=== PATIENT | male | born 1985 | race Caucasian/White ===

== ENCOUNTER 2017-10-09 20:32 | Inpatient (IN) | payer OTHER ==
[2017-10-09 20:45] VITALS: BMI 27.6
[2017-10-09] MEDS ORDERED: MELATONIN 5 MG TABLETS PO PRN (22:00)
--- NOTE | 2017-10-09 23:23 | HP ---
CIWA Score - CIWA Score Nausea/Vomitin-Mild Nausea/No Vomiting Muscle Tremors: 4-Moderate,w/Arms Extend Anxiety: 4-Mod. Anxious/Guarded Agitation: 4-Moderately Restless Paroxysmal Sweats: 1-Minimal Palms Moist Orientation: 1-Uncertain about Date Tacttile Disturbances: 0-None Auditory Disturbances: 0-None Visual Disturbances: 0-None Headache: 3-Moderate CIWA-Ar Total Score: 18 Admission ROS BHS - HPI Chief Complaint: Alcohol withdrawal symptoms Allergies/Adverse Reactions: Allergies Allergy/AdvReac Type Severity Reaction Status Date / Time Penicillins Allergy Verified 10/09/17 21:44 History of Present Illness: 32 years old male with 20 years of alcohol dependence is seeking admission to detox. Patient has been in previous detox, last at [facility] and reports insignificant period of sobriety. This is his first admission and first detox at [facility]. Patient has medical history of anxiety and depression. He denies suicide attempt and suicidal ideation at this time Exam Limitations: No Limitations - Ebola screening Have you traveled outside of the country in the last 21 days: No Have you had contact with anyone from an Ebola affected area: No Have you been sick,other than usual withdrawal symptoms: No Do you have a fever: No - Review of Systems Constitutional: Chills, Loss of Appetite, Night Sweats, Changes in sleep, Unexplained wgt Loss (reports 27 pounds loss in 3 months) EENT: reports: Sinus Pressure, Other (weas presciption glasse) Respiratory: reports: No Symptoms reported Cardiac: reports: Irregular Heart Rate GI: reports: No Symptoms Reported : reports: No Symptoms Reported Musculoskeletal: reports: Back Pain, Joint Pain, Muscle Pain, Muscle Weakness Integumentary: reports: Flushing Neuro: reports: Headache, Tremors Endocrine: reports: Excessive Sweating, Increased Urine Hematology: reports: No Symptoms Reported Psychiatric: reports: Agitated, Anxious, Depressed Other Systems: Reviewed and Negative Patient History - Patient Medical History Hx Anemia: No Hx Asthma: No Hx Chronic Obstructive Pulmonary Disease (COPD): No Hx Cardiac Disorders: No Hx Congestive Heart Failure: No Hx Hypertension: No Hx Hypercholesterolemia: Yes (Not on medication) HX Cerebrovascular Accident: No Hx Seizures: Yes (Not on medication) Hx Dementia: No Hx Diabetes: No Hx Gastrointestinal Disorders: No Hx Genitourinary Disorders: No Hx Sexually Transmitted Disorders: No Hx Renal Disease (ESRD): No Hx Thyroid Disease: No Hx Human Immunodeficiency Virus (HIV): No (Negative 2015) Hx Depression: Yes Hx Suicide Attempt: No (Denies suicide attempt/ suicigde deation at this [facility]) Hx Bipolar Disorder: No Hx Schizophrenia: No Other Medical History: Anxiety- Not on medication - Patient Surgical History Past Surgical History: No Hx Neurologic Surgery: No Hx Cataract Extraction: No Hx Cardiac Surgery: No Hx Lung Surgery: No Hx Abdominal Surgery: No Hx Appendectomy: No Hx Cholecystectomy: No Hx Genitourinary Surgery: No Hx Section: No Hx Orthopedic Surgery: No Other Surgical History: RECONSTRUCTIVE SURGERY ON THE JAW - Anesthesia Reaction: No - PPD History Previous Implant?: Yes Documented Results: Negative w/o proof Implanted On Prior [facility] Admission?: No PPD to be Administered?: Yes - Reproductive History Patient is a Female of Child Bearing Age (11 -55 yrs old): No (mALE) - Smoking Cessation Smoking history: Current every day smoker Have you smoked in the past 12 months: No Aproximately how many cigarettes per day: 10 Hx Chewing Tobacco Use: No Initiated information on smoking cessation: Yes 'Breaking Loose' booklet given: 10/09/17 - Substance & Tx. History Hx Alcohol Use: Yes Hx Substance Use: No - Substances Abused Alcohol Route: Oral Frequency: Daily Amount used: liquor- 1 pint, beer- 3 six pack Age of first use: 12 Date of Last Use: 10/08/17 Family Disease History - Family Disease History Family Disease History: Heart Disease: Father, [place]: Father Admission Physical Exam [facility] - Vital Signs Vital Signs: Vital Signs - 24 hr 10/09/17 20:44 Temperature 97.7 F Pulse Rate 75 Respiratory 18 Rate Blood Pressure 140/70 - Physical General Appearance: Yes: Moderate Distress, Tremorous, Irritable, Sweating, Anxious HEENTM: Yes: EOMI, Normal ENT Inspection, Normocephalic, Normal Voice, JONNY Respiratory: Yes: Lungs Clear, Normal Breath Sounds, No Respiratory Distress Neck: Yes: Supple Breast: Yes: Breast Exam Deferred Cardiology: Yes: Regular Rhythm, Regular Rate Abdominal: Yes: Normal Bowel Sounds Genitourinary: Yes: Within Normal Limits Back: Yes: Normal Inspection Musculoskeletal: Yes: Back pain, Muscle Pain, Muscle weakness Extremities: Yes: Tremors Neurological: Yes: Fully Oriented, Alert, Normal Mood/Affect Integumentary: Yes: Warm Lymphatic: Yes: Within Normal Limits - Diagnostic (1) Alcohol dependence with uncomplicated withdrawal Current Visit: Yes Status: Chronic (2) Depression Current Visit: Yes Status: Chronic (3) Anxiety Current Visit: Yes Status: Chronic Cleared for Admission [facility] - Detox or Rehab [facility] Level of Care: Medically Managed Detox Regimen/Protocol: Librium [facility] Breath Alcohol Content Breath Alcohol Content: 0 Urine Drug Screen - Results Drug Screen Negative: No Urine Drug Screen Results: THC-Marijuana, JOVANNA-Cocaine
[2017-10-09] MEDS ORDERED: chlordiazePOXIDE HCL 25 MG CAPSULE PO PRN (23:35)
[2017-10-09] MEDS ORDERED: ACETAMINOPHEN 325 MG TABLET (FP) PO PRN (23:35)
[2017-10-09] MEDS ORDERED: MENTHOL/PHENOL 1 EACH UD MM PRN (23:35)
[2017-10-09] MEDS ORDERED: MAG HYDROX/AL HYDROX/SIMETH 30 ML UNIT-DOSE CUP PO PRN (23:35)
[2017-10-09] MEDS ORDERED: guaiFENesin/D-METHORPHAN HB 10 ML UNIT-DOSE CUPS PO PRN (23:35)
[2017-10-09] MEDS ORDERED: P-EPHED 60MG/TRIPROLIDI 2.5MG TABLET PO PRN (23:35)
[2017-10-09] MEDS ORDERED: MAGNESIUM CITRATE 300 ML BOTTLE PO PRN (23:35)
[2017-10-09] MEDS ORDERED: IBUPROFEN 400 MG TABLET (FP) PO PRN (23:35)
[2017-10-09] MEDS ORDERED: chlordiazePOXIDE HCL 25 MG CAPSULE PO ONE (23:35)
[2017-10-09] MEDS ORDERED: NICOTINE POLACRILEX 2 MG GUM BUC PRN (23:35)
[2017-10-09] MEDS ORDERED: MAGNESIUM HYDROX 2400MG/30ML ORAL SUSPENSION 30 ML CUP PO PRN (23:35)
[2017-10-09] MEDS ORDERED: LOPERAMIDE HCL 2 MG CAPSULE PO PRN (23:35)
[2017-10-10] MEDS: chlordiazePOXIDE HCL 25 MG CAPSULE PO SCH ×5 (06:15→22:45)
[2017-10-10 10:17] LABS: URINE APPEARANCE CLEAR; URINE BILIRUBIN NEGATIVE (<2.0 mg/dL); URINE COLOR LTYELLOW; URINE GLUCOSE (UA) NEGATIVE (NEGATIVE); URINE KETONE NEGATIVE (NEGATIVE); URINE LEUK ESTERASE NEGATIVE (NEGATIVE); URINE NITRITE NEGATIVE (NEGATIVE); URINE PROTEIN NEGATIVE (NEGATIVE); URINE UROBILINOGEN NEGATIVE mg/dL (0.2-1.0)
[2017-10-10 10:23] LABS: HEMATOCRIT 48.1 % (35.4-49); HEMOGLOBIN 15.5 GM/dL (11.7-16.9); MCH 28.9 pg (25.7-33.7); MCHC 32.2 g/dl (32.0-35.9); MEAN CELL VOLUME 89.9 fl (80-96); MEAN PLT VOLUME 9.5 fl (7.5-11.1); PLATELET COUNT 271 K/MM3 (134-434); RBC 5.35 M/mm3 (4.00-5.60); WHITE BLOOD COUNT 8.9 K/mm3 (4.0-10.0)
[2017-10-10] MEDS: PRENATAL VITAMINS W/ FOLIC ACID TABLET (FP) PO SCH (10:46)
[2017-10-10] MEDS: NICOTINE 14 MG/24 HOURS TOPICAL PATCH TD SCH (10:46)
--- NOTE | 2017-10-10 12:17 | EKG ---
Test Reason : Blood Pressure : / mmHG Vent. Rate : 060 BPM Atrial Rate : 060 BPM P-R Int : 144 ms QRS Dur : 088 ms QT Int : 404 ms P-R-T Axes : 056 069 039 degrees QTc Int : 404 ms NORMAL SINUS RHYTHM NORMAL ECG NO PREVIOUS ECGS AVAILABLE Confirmed by ELYSIA ZAIDI MD ([id number]) on 10/10/2017 12:17:13 PM Referred By: Confirmed By:ELYSIA ZAIDI MD
[2017-10-10 12:31] LABS: CHLORIDE 104 mmol/L (98-107); POTASSIUM 4.5 mmol/L (3.5-5.1); SODIUM 141 mmol/L (136-145)
[2017-10-10 12:59] LABS: ALBUMIN 3.7 g/dl (3.4-5.0); ALK PHOS 90 U/L (45-117); ANION GAP 10 MMOL/L (8-16); BILIRUBIN,TOTAL 0.6 mg/dL (0.2-1.0); BLOOD UREA NITROGEN 18 mg/dL (7-18); CO2 27 mmol/L (21-32); CREATININE 1.1 mg/dL (0.7-1.3); GLUCOSE,RANDOM 93 mg/dL (74-106); SGOT/AST 20 U/L (15-37); SGPT/ALT 29 U/L (12-78); TOT PROT 7.7 g/dl (6.4-8.2)
--- NOTE | 2017-10-10 14:06 | PN ---
S CIWA - CIWA Score Nausea/Vomitin Muscle Tremors: 3 Anxiety: 3 Agitation: 2 Paroxysmal Sweats: 1-Minimal Palms Moist Orientation: 0-Oriented Tacttile Disturbances: 1-Very Mild Itch/Numbness Auditory Disturbances: 1-Very Mild Visual Disturbances: 0-None Headache: 2-Mild CIWA-Ar Total Score: 16 BHS Progress Note (SOAP) Subjective: alert,irritable,anxious,interrupted sleep,tremor Objective: 10/10/17 14:04 Vital Signs Temperature 97.3 F L 10/10/17 13:23 Pulse Rate 57 L 10/10/17 13:23 Respiratory Rate 18 10/10/17 13:23 Blood Pressure 142/86 10/10/17 13:23 O2 Sat by Pulse Oximetry (%) ekg nsr,normal ecg rate 60/min qt/qtc 404/404 Laboratory Last Values WBC 8.9 K/mm3 (4.0-10.0) 10/10/17 07:30 RBC 5.35 M/mm3 (4.00-5.60) 10/10/17 07:30 Hgb 15.5 GM/dL (11.7-16.9) 10/10/17 07:30 Hct 48.1 % (35.4-49) 10/10/17 07:30 MCV 89.9 fl (80-96) 10/10/17 07:30 MCH 28.9 pg (25.7-33.7) 10/10/17 07:30 MCHC 32.2 g/dl (32.0-35.9) 10/10/17 07:30 RDW 14.0 % (11.9-15.9) 10/10/17 07:30 Plt Count 271 K/MM3 (134-434) 10/10/17 07:30 MPV 9.5 fl (7.5-11.1) 10/10/17 07:30 Sodium 141 mmol/L (136-145) 10/10/17 07:30 Potassium 4.5 mmol/L (3.5-5.1) 10/10/17 07:30 Chloride 104 mmol/L (98-107) 10/10/17 07:30 Carbon Dioxide 27 mmol/L (21-32) 10/10/17 07:30 Anion Gap 10 MMOL/L (8-16) 10/10/17 07:30 BUN 18 mg/dL (7-18) 10/10/17 07:30 Creatinine 1.1 mg/dL (0.7-1.3) 10/10/17 07:30 Creat Clearance w eGFR > 60 (>60) 10/10/17 07:30 Random Glucose 93 mg/dL (74-106) 10/10/17 07:30 Calcium 9.0 mg/dL (8.5-10.1) 10/10/17 07:30 Total Bilirubin 0.6 mg/dL (0.2-1.0) 10/10/17 07:30 AST 20 U/L (15-37) 10/10/17 07:30 ALT 29 U/L (12-78) 10/10/17 07:30 Alkaline Phosphatase 90 U/L (45-117) 10/10/17 07:30 Total Protein 7.7 g/dl (6.4-8.2) 10/10/17 07:30 Albumin 3.7 g/dl (3.4-5.0) 10/10/17 07:30 Urine Color Ltyellow 10/10/17 07:30 Urine Appearance Clear 10/10/17 07:30 Urine pH 6.0 (5.0-8.0) 10/10/17 07:30 Ur Specific [place] 1.023 (1.001-1.035) 10/10/17 07:30 Urine Protein Negative (NEGATIVE) 10/10/17 07:30 Urine Glucose (UA) Negative (NEGATIVE) 10/10/17 07:30 Urine Ketones Negative (NEGATIVE) 10/10/17 07:30 Urine Blood Negative (NEGATIVE) 10/10/17 07:30 Urine Nitrite Negative (NEGATIVE) 10/10/17 07:30 Urine Bilirubin Negative (<2.0 mg/dL) 10/10/17 07:30 Urine Urobilinogen Negative mg/dL (0.2-1.0) 10/10/17 07:30 Ur Leukocyte Esterase Negative (NEGATIVE) 10/10/17 07:30 RPR Titer Nonreactive (NONREACTIVE) 10/10/17 07:30 HIV 1&2 Antibody Screen Negative 10/10/17 07:30 HIV P24 Antigen Negative 10/10/17 07:30 Assessment: 10/10/17 14:05 withdrawal symptom Plan: continue detox
--- NOTE | 2017-10-10 15:54 | CONSULT ---
[facility] Psychiatric Consult - Data Date of interview: 10/10/17 Admission source: [facility] Identifying data: Patient is a 32 year old male, father of three, unemployed, and currently living with the mother of his children. This is patient's first admission to detox at [facility]. Pt. admitted to for alcohol and cocaine dependence. Substance Abuse History: Smoking Cessation. Smoking history: Current every day smoker. Have you smoked in the past 12 months: No. Aproximately how many cigarettes per day: 10. Hx Chewing Tobacco Use: No. Initiated information on smoking cessation: Yes. 'Breaking Loose' booklet given: 10/09/17. - Substance & Tx. History. Hx Alcohol Use: Yes. Hx Substance Use: No. - Substances Abused. Alcohol. Route: Oral. Frequency: Daily. Amount used: liquor- 1 pint, beer- 3 six pack. Age of first use: 12. Date of Last Use: 10/08/17 Medical History: Reconstructive surgery of the jaw. Psychiatric History: Patient's first psychiatric hospitalization was at 12 years of age after his parents . Pt. denies accepting medications as a teenager. Outpatient psychiatric services was provided on and off for several years. Most recent OPD was provided 1.5 years ago. States he has been on trials of zoloft, gabapentin, seroquel and mirtzapine. Pt denies h/o suicide attempt. Pt. reports feeling sad and difficulty sleeping. Physical/Sexual Abuse/Trauma History: denies. Mental Status Exam - Mental Status Exam Alert and Oriented to: Time, Place, Person Cognitive Function: Good Patient Appearance: Well Groomed Mood: Sad, Euthymic Affect: Mood Congruent Patient Behavior: Appropriate, Cooperative Speech Pattern: Clear, Appropriate Voice Loudness: Normal Thought Process: Intact, Goal Oriented Thought Disorder: Not Present Hallucinations: Denies Suicidal Ideation: Denies Homicidal Ideation: Denies Insight/Judgement: Poor Sleep: Poorly Appetite: Fair Muscle strength/Tone: Normal Gait/Station: Normal Psychiatric Findings - Problem List ([place] 1, 2,3) (1) Cocaine dependence Current Visit: Yes Status: Acute (2) Substance induced mood disorder Current Visit: Yes Status: Acute (3) Alcohol dependence with uncomplicated withdrawal Current Visit: Yes Status: Acute - Initial Treatment Plan Initial Treatment Plan: Psychoeducation provided. Detoxification in progress. Mirtzapine 15mg qhs ordered. Benefits and side effects discussed. Verbal consent given.
[2017-10-10] MEDS: THIAMINE HCL 100 MG TABLET (FP) PO SCH (22:19)
[2017-10-10] MEDS: MIRTAZAPINE 15 MG TABLET (FP) PO SCH (22:20)
[2017-10-11] MEDS: chlordiazePOXIDE HCL 25 MG CAPSULE PO SCH ×3 (05:56→17:21)
[2017-10-11] MEDS: NICOTINE 14 MG/24 HOURS TOPICAL PATCH TD SCH (10:17)
[2017-10-11] MEDS: PRENATAL VITAMINS W/ FOLIC ACID TABLET (FP) PO SCH (10:19)
[2017-10-11] MEDS ORDERED: hydrOXYzine PAMOATE 50 MG CAPSULE (FP) PO ONE (10:41)
[2017-10-11] MEDS ORDERED: hydrOXYzine PAMOATE 50 MG CAPSULE (FP) PO PRN (10:41)
--- NOTE | 2017-10-11 12:34 | PN ---
S CIWA - CIWA Score Nausea/Vomitin Muscle Tremors: 3 Anxiety: 2 Agitation: 2 Paroxysmal Sweats: 1-Minimal Palms Moist Orientation: 0-Oriented Tacttile Disturbances: 1-Very Mild Itch/Numbness Auditory Disturbances: 1-Very Mild Visual Disturbances: 0-None Headache: 2-Mild CIWA-Ar Total Score: 15 BHS Progress Note (SOAP) Subjective: alert,irritable,anxious,interrupted sleep,tremor Objective: 10/11/17 12:33 Vital Signs Temperature 97.7 F 10/11/17 11:28 Pulse Rate 76 10/11/17 11:28 Respiratory Rate 20 10/11/17 11:28 Blood Pressure 146/97 10/11/17 11:28 O2 Sat by Pulse Oximetry (%) Assessment: 10/11/17 12:34 withdrawal symptom Plan: continue detox
[2017-10-11] MEDS ORDERED: DEXAMETHASONE SOD PHOSPHATE 4 MG/1 ML VIAL ONE (15:54)
[2017-10-11] MEDS ORDERED: MIDAZOLAM HCL 2 MG/2 ML SINGLE DOSE VIAL ONE (15:54)
[2017-10-11] MEDS ORDERED: PROPOFOL 20 ML ONE (15:54)
[2017-10-11] MEDS ORDERED: LIDOCAINE HCL/PF 2% SDV 5ML VIAL ONE (15:54)
[2017-10-11] MEDS: MIRTAZAPINE 15 MG TABLET (FP) PO SCH (22:01)
[2017-10-11] MEDS: THIAMINE HCL 100 MG TABLET (FP) PO SCH (22:01)
[2017-10-11] MEDS: chlordiazePOXIDE 5 MG CAPSULE PO SCH (22:01)
[2017-10-12] MEDS: chlordiazePOXIDE 5 MG CAPSULE PO SCH (06:32)
[2017-10-12 09:21] VITALS: BP 127/73; PULSE 67; TEMP 97.5
--- NOTE | 2017-10-12 10:15 | DS ---
[facility] Detox Discharge Summary Admission Date: 10/09/17 Discharge Date: 10/12/17 - History Present History: Alcohol Dependence Additional Comments: 32 years old male admitted on 10/09/17 for alcohol withdrawal sx reported feeling better denies alcohol withdrawal sx alert oriented x 3 no acute distress aftercare [facility] for medical and mental issues health teaching on alcohol misuse related complications - Physical Exam Results Vital Signs: Vital Signs Temperature 97.5 F L 10/12/17 09:21 Pulse Rate 67 10/12/17 09:21 Respiratory Rate 18 10/12/17 09:21 Blood Pressure 127/73 10/12/17 09:21 O2 Sat by Pulse Oximetry (%) Pertinent Admission Physical Exam Findings: alcohol withdrawal sx Vital Signs Temperature 97.5 F L 10/12/17 09:21 Pulse Rate 67 10/12/17 09:21 Respiratory Rate 18 10/12/17 09:21 Blood Pressure 127/73 10/12/17 09:21 O2 Sat by Pulse Oximetry (%) Laboratory Last Values WBC 8.9 K/mm3 (4.0-10.0) 10/10/17 07:30 RBC 5.35 M/mm3 (4.00-5.60) 10/10/17 07:30 Hgb 15.5 GM/dL (11.7-16.9) 10/10/17 07:30 Hct 48.1 % (35.4-49) 10/10/17 07:30 MCV 89.9 fl (80-96) 10/10/17 07:30 MCH 28.9 pg (25.7-33.7) 10/10/17 07:30 MCHC 32.2 g/dl (32.0-35.9) 10/10/17 07:30 RDW 14.0 % (11.9-15.9) 10/10/17 07:30 Plt Count 271 K/MM3 (134-434) 10/10/17 07:30 MPV 9.5 fl (7.5-11.1) 10/10/17 07:30 Sodium 141 mmol/L (136-145) 10/10/17 07:30 Potassium 4.5 mmol/L (3.5-5.1) 10/10/17 07:30 Chloride 104 mmol/L (98-107) 10/10/17 07:30 Carbon Dioxide 27 mmol/L (21-32) 10/10/17 07:30 Anion Gap 10 MMOL/L (8-16) 10/10/17 07:30 BUN 18 mg/dL (7-18) 10/10/17 07:30 Creatinine 1.1 mg/dL (0.7-1.3) 10/10/17 07:30 Creat Clearance w eGFR > 60 (>60) 10/10/17 07:30 Random Glucose 93 mg/dL (74-106) 10/10/17 07:30 Calcium 9.0 mg/dL (8.5-10.1) 10/10/17 07:30 Total Bilirubin 0.6 mg/dL (0.2-1.0) 10/10/17 07:30 AST 20 U/L (15-37) 10/10/17 07:30 ALT 29 U/L (12-78) 10/10/17 07:30 Alkaline Phosphatase 90 U/L (45-117) 10/10/17 07:30 Total Protein 7.7 g/dl (6.4-8.2) 10/10/17 07:30 Albumin 3.7 g/dl (3.4-5.0) 10/10/17 07:30 Urine Color Ltyellow 10/10/17 07:30 Urine Appearance Clear 10/10/17 07:30 Urine pH 6.0 (5.0-8.0) 10/10/17 07:30 Ur Specific [place] 1.023 (1.001-1.035) 10/10/17 07:30 Urine Protein Negative (NEGATIVE) 10/10/17 07:30 Urine Glucose (UA) Negative (NEGATIVE) 10/10/17 07:30 Urine Ketones Negative (NEGATIVE) 10/10/17 07:30 Urine Blood Negative (NEGATIVE) 10/10/17 07:30 Urine Nitrite Negative (NEGATIVE) 10/10/17 07:30 Urine Bilirubin Negative (<2.0 mg/dL) 10/10/17 07:30 Urine Urobilinogen Negative mg/dL (0.2-1.0) 10/10/17 07:30 Ur Leukocyte Esterase Negative (NEGATIVE) 10/10/17 07:30 RPR Titer Nonreactive (NONREACTIVE) 10/10/17 07:30 HIV 1&2 Antibody Screen Negative 10/10/17 07:30 HIV P24 Antigen Negative 10/10/17 07:30 lab noted - Treatment Hospital Course: Detox Protocol Followed, Detoxed Safely, Responded well, Discharged Condition Good, Rehab Referral Accepted Patient has Accepted a Rehab Referral to: [facility] - Medication Discharge Medications: Ambulatory Orders Mirtazapine [Remeron -] 15 mg PO HS 10/12/17 - Diagnosis (1) Alcohol dependence with uncomplicated withdrawal Current Visit: Yes Status: Acute - AMA Did Patient Leave Against Medical Advice: No
[2017-10-12] MEDS ORDERED: chlordiazePOXIDE HCL 10 MG CAPSULE PO SCH (23:00)
== END 2017-10-12 09:44 | disposition home or self-care (01) | DRG 774 ==
LOC: YASAS 20:32 → Y6N 22:09
PROC: HZ2ZZZZ Detoxification Services for Substance Abuse Treatment (ICD-10-PCS; principal; 2017-10-09)
DX: F10.230 Alcohol dependence with withdrawal, uncomplicated (principal); F14.20 Cocaine dependence, uncomplicated; F41.9 Anxiety disorder, unspecified; F32.9 Major depressive disorder, single episode, unspecified; F19.24 Other psychoactive substance dependence with psychoactive substance-induced mood disorder; G40.909 Epilepsy, unspecified, not intractable, without status epilepticus; E78.00 Pure hypercholesterolemia, unspecified
CPT/HCPCS: 36415; 80053; 81003; 85027; 86593; 87389; 93005; 93010